=== PATIENT | female | born 1960 | race Two or more races ===

== ENCOUNTER 2019-11-21 15:51 | Emergency (ER) | payer OTHER ==
[~2019-11-21] VITALS: Ht 162.6 cm; Wt 108.9 kg
[2019-11-21 17:00] VITALS: BP 122/76
[2019-11-21] MEDS ORDERED: KETOROLAC TROMETH 60MG/2ML VIAL IM ONE (17:15)
[2019-11-21] MEDS ORDERED: HYDROcodone-ACET 7.5/325MG TAB PO ONE (17:15)
== END 2019-11-21 18:14 | disposition home or self-care (01) ==
LOC: ER 15:51 → EDBD 15:51 → ER 18:14
DX: S83.91XA Sprain of unspecified site of right knee, initial encounter (principal); M17.11 Unilateral primary osteoarthritis, right knee; I10 Essential (primary) hypertension; W19.XXXA Unspecified fall, initial encounter; Y93.01 Activity, walking, marching and hiking; Y92.89 Other specified places as the place of occurrence of the external cause; Y99.8 Other external cause status
CPT/HCPCS: 73562; 93005; 96372; 99283; J1885

== ENCOUNTER 2020-08-11 17:34 | Emergency (ER) | payer OTHER ==
[~2020-08-11] VITALS: Ht 162.6 cm; Wt 9.1 kg
[2020-08-11] MEDS ORDERED: dilTIAZem 125mg/125ml BAG KIT 125 ML IV ONE (17:52)
[2020-08-11] MEDS ORDERED: dilTIAZem 25 MG/5 ML VIAL IV ONE ×2 (17:52→18:15)
[2020-08-11 18:28] LABS: Basophils # (auto) 0 10 ^3/uL (0-0.2); Basophils % (auto) 0.5 % (0.0-2.0); Eosinophils # (auto) 0.1 10 ^3/uL (0-0.8); Eosinophils % (auto) 0.7 % (0.0-7.0); Hematocrit 44.4 % (36.0-46.0); Lymphocytes # (auto) 2.7 10 ^3/uL (0.4-5.4); Lymphocytes % (auto) 29.6 % (10.0-50.0); Mean Corpuscular Hemoglobin 33.2 pg (28.0-32.0); Mean Corpuscular Hgb Conc. 33.8 g/dL (32.0-36.0); Mean Corpuscular Volume 98.2 fL (80.0-100.0); Monocytes # (auto) 0.9 10 ^3/uL (0-1.3); Monocytes % (auto) 9.7 % (0.0-12.0); Neutrophils # (auto) 5.5 10 ^3/uL (1.6-8.6); Neutrophils % (auto) 59.5 % (37.0-80.0); Red Blood Cells 4.52 10^6/uL (4.0-5.20); Red Cell Distribution Width 13.4 % (11.8-14.3); White Blood Cell 9.2 10^3/uL (4.4-10.8)
[2020-08-11 18:44] LABS: INR 1.12 (0.9-1.15); Partial Thromboplastin Time 41.9 sec (23.0-31.2)
[2020-08-11 18:46] LABS: Alanine Aminotransferase 33 U/L (13-56); Albumin 3.7 g/dL (3.4-5.0); Anion Gap 9 (5-15); Aspartate Aminotransferase 32 U/L (15-37); BUN/Creatinine Ratio 29.3; Blood Urea Nitrogen 27 mg/dL (7-18); Calcium 8.6 mg/dL (8.5-10.1); Carbon Dioxide 23 mmol/L (21-32); Chloride 103 mmol/L (98-107); GFR African American 80 mL/min; GFR Non-African American 66 mL/min; Glucose 150 mg/dL (74-106); Magnesium 1.9 mg/dL (1.6-2.6); Potassium 4.2 mmol/L (3.5-5.1); Sodium 135 mmol/L (136-145)
[2020-08-11 18:53] LABS: Alkaline Phosphatase 84 U/L (45-117); Bilirubin, Total 0.4 mg/dL (0.2-1.0); Total Protein 7.5 g/dL (6.4-8.2)
[2020-08-11 19:15] VITALS: BP 94/49
[2020-08-11 19:55] LABS: Urine Bacteria FEW /hpf (None Seen); Urine Blood Negative /uL (Negative); Urine Mucus FEW (None Seen); Urine Specific Gravity 1.017 (1.001-1.035); Urine WBC 1 /hpf (0 - 5)
== END 2020-08-11 21:00 | disposition home or self-care (01) ==
LOC: ER 17:34 → EDSEX 17:34 → EDBD 17:34 → ER 21:00
DX: I48.91 Unspecified atrial fibrillation (principal)
CPT/HCPCS: 36415; 71045; 80053; 81001; 83735; 84484; 85025; 85610; 85730; 93005; 96374